=== PATIENT | male | born 1955 | race Caucasian/White ===

== ENCOUNTER 2017-11-19 23:13 | Emergency (ER) | payer BC ==
[2017-11-19] MEDS ORDERED: Ondansetron HCl/PF 4 MG/2 ML Vial ONE (23:24)
[2017-11-20 00:02] LABS: Band 2 % (5-11); Eosinophils 3 % (0-10); Hemoglobin 15.8 g/dL (14.0-18.0); Lymphocytes 2 % (21-51); MDiff Complete? YES; Mean Corpuscular HGB CONC 33.9 g/dL (32.0-36.0); Mean Corpuscular Hemoglobin 29.5 pg (27.0-31.0); Mean Corpuscular Volume 86.9 fL (78.0-98.0); Mean Platelet Volume 7.2 fL (7.4-10.4); Monocytes 6 % (0-10); Neutrophil 87 % (42-75); Platelet Count 233 thou/uL (130-400); RBC Distribution Width 11.7 % (11.5-14.5); Red Blood Cell (RBC) Count 5.37 mill/uL (4.70-6.10); White Blood Cell (WBC) Count 17.6 thou/uL (4.8-10.8)
[2017-11-20 00:33] LABS: Bilirubin Negative (Negative); Blood, Urine Moderate (Negative); Clarity Clear (Clear); Glucose, Urine (Dipstick) Negative (Negative); Leukocyte Negative (Negative); Nitrite Negative (Negative); Protein, Urine (Dipstick) Negative (Neg-Trace); Urobilinogen 0.2 mg/dL (0.2-1.0); pH, Urine 5.5 (5.0-9.0)
[2017-11-20 00:40] LABS: Bacteria/HPF Rare-Few HPF (None Seen); Hyaline Casts/LPF 0-3 HYALINE CAST LPF (0-3 Hyaline); RBC/HPF 0-3 HPF (0-3); Squamous Epithelial 0-3 HPF (0-3); WBC/HPF 0-3 HPF (0-3)
[2017-11-20 00:58] LABS: ALT (SGPT) 28 U/L (8-55); AST (SGOT) 31 U/L (5-34); Albumin 4.3 g/dL (3.4-4.8); Alkaline Phosphatase 75 U/L (40-150); Anion Gap 19 mmol/L (10-20); BUN (Urea Nitrogen) 25 mg/dL (8.4-25.7); Bilirubin, Total 0.8 mg/dL (0.2-1.2); Calc. Creatinine Clearance 0 mL/min (70-130); Calcium 9.2 mg/dL (7.8-10.44); Carbon Dioxide 18 mmol/L (23-31); Chloride 107 mmol/L (98-107); Estimated GFR-MDRD 79; Globulin 2.9 g/dL (2.4-3.5); Glucose 123 mg/dL (80-115); Lipase 10 U/L (8-78); Potassium 4.6 mmol/L (3.5-5.1); Protein, Total 7.2 g/dL (5.8-8.1); Sodium 139 mmol/L (136-145)
[2017-11-20 01:00] LABS: Troponin I Less than 0.010 ng/mL (< 0.028)
--- NOTE | 2017-11-20 09:41 | CT ---
PRELIMINARY REPORT/[facility]/EMERGENTY AFTER-HOURS PROCEDURE CT Abdomen and Pelvis With Intravenous Contrast CLINICAL HISTORY: 62 years old, male; Pain; Abdominal pain; Patient HX: [id number] presents to ed C/O vomiting onset 12: 43, diarrhea shortly after. Pt reports he has vomited x7 times since then. Pt reports he ate breakfas t at 06: 40. Pt denies abd pain, just reports "tightness. " pt took imodium for diarrhea and has been trying to drink gatorade and water. Pt reports pmhx of acid reflux and prostate issues pending result s. TECHNIQUE: Axial computed tomography images of the abdomen and pelvis with intravenous contrast. Coronal reformatted images were created and reviewed. CONTRAST: 85 mL of [id number] administered intravenously. COMPARISON: No relevant prior studies available. FINDINGS: Limitations: Somewhat limited study due to motion artifacts. Lung bases: No acute findings. No mass. No consolidation. ABDOMEN: Liver: No acute findings. No mass. Mildly fatty liver. Gallbladder and bile ducts: No calcified stones. No ductal dilation. Pancreas: No ductal dilation. No mass. Spleen: No acute findings. No mass. Adrenals: No mass. Kidneys and ureters: Right ureterovesical junction 5 mm calculus. No hydroureteronephrosis. Unremarka ble kidneys. Stomach and bowel: Fluid-filled mildly distended small bowel loops, nonspecific and can be seen with enteritis. No evidence of bowel obstruction. Diverticulosis. Fluid distended stomach. PELVIS: Appendix: No findings to suggest acute appendicitis. Bladder: No mass. Reproductive: No acute findings. ABDOMEN and PELVIS: Intraperitoneal space: No acute findings. No free air. No significant fluid collection. Bones/joints: No acute fracture. Bilateral L5 pars defects. Soft tissues: No acute findings. Vasculature: No acute findings. No abdominal aortic aneurysm. Lymph nodes: No lymphadenopathy. IMPRESSION: Possible enteritis. Right UVJ calculus without hydroureteronephrosis. Thank you for allowing us to participate in the care of your patient. Dictated and Authenticated by: Tavo Lerma MD 11/20/2017 1:06 AM Central Time ([place] & [place]) FINAL REPORT CT ABDOMEN AND PELVIS WITH IV CONTRAST: DATE: 11/20/2017. TIME: Performed on an emergency basis at 0005 hours. HISTORY: Abdominal pain. Vomiting. FINDINGS: Agree with the preliminary report by Dr. Lerma from [facility]. Nonobstructing 5 mm distal ri ght ureteral calculus. Mild wall thickening of scattered loops of small bowel may represent enteriti s. POS: FRANCISCO JAVIER
== END 2017-11-20 01:29 | disposition home or self-care (01) ==
LOC: SCSER 23:13
DX: R11.2 Nausea with vomiting, unspecified (principal); R19.7 Diarrhea, unspecified; K21.9 Gastro-esophageal reflux disease without esophagitis; Z79.899 Other long term (current) drug therapy
CPT/HCPCS: 74177; 80053; 81003; 81015; 83690; 84484; 85025; 93005; 96361; 96374; J2405

== ENCOUNTER 2017-11-29 14:01 | Outpatient (CLI) | payer BC ==
[2017-11-29 14:57] LABS: Hemoglobin 15.7 g/dL (14.0-18.0); Mean Corpuscular HGB CONC 33.4 g/dL (32.0-36.0); Mean Corpuscular Hemoglobin 30.3 pg (27.0-31.0); Mean Corpuscular Volume 90.7 fL (78.0-98.0); Mean Platelet Volume 6.6 fL (7.4-10.4); Platelet Count 338 thou/uL (130-400); RBC Distribution Width 11.8 % (11.5-14.5); White Blood Cell (WBC) Count 8.1 thou/uL (4.8-10.8)
[2017-11-29 15:19] LABS: Anion Gap 14 mmol/L (10-20); BUN (Urea Nitrogen) 18 mg/dL (8.4-25.7); Calc. Creatinine Clearance 0 mL/min (70-130); Calcium 9.4 mg/dL (7.8-10.44); Carbon Dioxide 23 mmol/L (23-31); Chloride 107 mmol/L (98-107); Estimated GFR-MDRD Greater than 90; Glucose 96 mg/dL (80-115); Potassium 4.3 mmol/L (3.5-5.1); Sodium 140 mmol/L (136-145)
--- NOTE | 2017-11-30 07:55 | EKG ---
Test Reason : Blood Pressure : / mmHG Vent. Rate : 069 BPM Atrial Rate : 069 BPM P-R Int : 146 ms QRS Dur : 082 ms QT Int : 374 ms P-R-T Axes : 037 047 059 degrees QTc Int : 400 ms Normal sinus rhythm Normal ECG When compared with ECG of 19-NOV-2017 23:50, (Unconfirmed) No significant change was found Confirmed by JENNIFER KAPLAN ([id number]) on 11/30/2017 7:54:44 AM Referred By: ZOE Confirmed By:JENNIFER KAPLAN
== END 2017-11-29 14:02 | disposition home or self-care (01) ==
LOC: LABBT 14:01
PROVIDERS: ATTEND Orthopaedic Surgery
DX: Z01.818 Encounter for other preprocedural examination (principal); N40.0 Benign prostatic hyperplasia without lower urinary tract symptoms
CPT/HCPCS: 80048; 85027; 93005; 93010

== ENCOUNTER 2017-12-06 09:04 | Day surgery (SDC) | payer BC ==
[2017-11-29 14:12] VITALS: BMI 30.4
[2017-12-06] MEDS ORDERED: Iothalamate Meglumine 60% 50 ML VIAL FS ONE (10:50)
[2017-12-06] MEDS ORDERED: Levofloxacin 500 mg/D5W 100 ml Premix Bag ONE (10:53)
[2017-12-06] MEDS ORDERED: Fentanyl 100 MCG/2 ML VIAL ONE (11:02)
[2017-12-06] MEDS ORDERED: Midazolam HCl 2 mg/2 ml Vial ONE (11:02)
[2017-12-06] MEDS ORDERED: PROPOFOL 200 MG/20 ML VIAL ONE (13:05)
[2017-12-06] MEDS ORDERED: ePHEDrine/0.9% NaCl/PF SYRINGE 50 mg/10 ml ONE (13:05)
[2017-12-06] MEDS ORDERED: Ondansetron HCl/PF 4 MG/2 ML Vial ONE (13:05)
[2017-12-06] MEDS ORDERED: Dexamethasone 20 MG/5 ML VIAL ONE (13:05)
[2017-12-06] MEDS ORDERED: Lidocaine 1% PF 5 ML VIAL ONE (13:05)
--- NOTE | 2017-12-06 15:29 | OP ---
DATE OF SERVICE: 12/06/2017 PREOPERATIVE DIAGNOSIS: Right ureteropelvic junction stone. POSTOPERATIVE DIAGNOSIS: Right ureteropelvic junction stone. PROCEDURES PERFORMED: Cystoscopy, right ureteroscopy, holmium laser lithotripsy , stone basketing, stent placement, 6 x 26 double-J with a string. SPECIMEN: Stone. No complications. Minimal blood loss. Drain remaining was a double-J with string. INDICATIONS: The patient is a 62-year-old male who was followed in the office and noted to have microhematuria and before the workup could be completed, he actually presented to the ER with renal colic. CT showed a large 1 cm stone at the UVJ on the right. He was able to be discharged home without definitive intervention and saw me in followup. We planned for definitive therapy and he was presents for this. The patient was brought into the room by Anesthesia, laid on the table in supine position. After receiving general anesthetic, we placed the patient in lithotomy position with left leg elevated and then prepped and draped in sterile fashion. Using the 21-Azeri cystoscope and 30-degree lens, urethra was traversed. Prostate was somewhat high riding but able to be entered easily into the bladder and the bladder was inspected and found to be without lesions. The right ureteral orifice was identified and intubated with a wire first which advanced all the way up to the renal pelvis. Pollack catheter was advanced over this and then the wire removed. No hydronephrotic drip was noted. No urine was able to be retrieved. At this point, a retrograde pyelogram was performed and measurements for a 6 x 26 double-J at the end of the case was performed leaving the wire in place. The Pollack was removed and the dilating sheath was blown up to a maximum pressure of 12 mmHg, a 15 Azeri and 6 cm. This was taken down and then the scope was broken apart, drained the bladder, removed carefully leaving the wire in place and the rigid ureteroscope was taken up to the level of the stone with fragmentation with holmium laser lithotripsy occurred. Multiple fragments were then removed, most dropped into the bladder, one extracted all the way out and sent for stone analysis. Holmium laser was used again to further fragment the rest of the stone and all the fragments were removed in its entirety and dropped into the bladder except for the one that was already extracted out through the urethral meatus and a final pass of the ureter revealed no further significant stones and so the ureteroscope was removed and the cystoscope put back in order to empty out all the stones from the bladder which were all sent together and then the cystoscope was removed and back fed again over the wire and a 6 x 26 double-J was placed over the wire with a coil visualized with the top portion slightly over the upper pole extended, but otherwise in good position and lower coil visualized in good position in the bladder. The scope was broken apart carefully and removed, keeping the string intact, which was then secured to the patient's penis. The patient was then fully awakened and transferred to the PACU in stable condition. HARRY
[2017-12-06] MEDS ORDERED: B & O 30 MG SUPP ONE (15:36)
== END 2017-12-07 16:14 | disposition home or self-care (01) ==
LOC: SDC 09:04
PROVIDERS: ATTEND Urology
PROC: 0T768DZ Dilation of Right Ureter with Intraluminal Device, Via Natural or Artificial Opening Endoscopic (ICD-10-PCS; principal; 2017-12-06)
PROC: 0TF68ZZ Fragmentation in Right Ureter, Via Natural or Artificial Opening Endoscopic (ICD-10-PCS; principal; 2017-12-06)
DX: N20.2 Calculus of kidney with calculus of ureter (principal); N40.1 Benign prostatic hyperplasia with lower urinary tract symptoms; R35.1 Nocturia; N52.9 Male erectile dysfunction, unspecified; Z79.899 Other long term (current) drug therapy
CPT/HCPCS: 76000; 82365; 88300; C1758; J1100; J1956; J2001; J2250; J2405; J2704; J3010; Q9961

== ENCOUNTER 2019-03-10 19:30 | Outpatient (CLI) | payer BC | END 2019-03-10 19:31 | disposition home or self-care (01) | LOC: SLEEPLAB 19:30 | PROVIDERS: ATTEND Family Medicine | DX: G47.33 Obstructive sleep apnea (adult) (pediatric) (principal); F41.9 Anxiety disorder, unspecified; E66.9 Obesity, unspecified | CPT/HCPCS: 95810 ==

== ENCOUNTER 2020-04-29 07:28 | Day surgery (SDC) | payer BC ==
[2020-04-28 11:23] VITALS: BMI 30.9
[2020-04-29] MEDS ORDERED: Levofloxacin 500 mg/D5W 100 ml Premix Bag ONE (07:54)
[2020-04-29] MEDS ORDERED: Fentanyl 100 MCG/2 ML VIAL ONE ×2 (08:27→09:08)
[2020-04-29] MEDS ORDERED: Midazolam HCl 2 mg/2 ml Vial ONE ×2 (08:27→09:08)
[2020-04-29] MEDS ORDERED: hydrALAZINE 20 MG/ML VIAL ONE (09:07)
[2020-04-29] MEDS ORDERED: PROPOFOL 200 MG/20 ML VIAL ONE (09:12)
[2020-04-29] MEDS ORDERED: Ketorolac Tromethamine 30 MG/ML VIAL ONE (10:17)
[2020-04-29] MEDS ORDERED: Oxybutynin 5 MG TAB ONE (10:17)
[2020-04-29] MEDS ORDERED: Phenazopyridine HCl 100 MG TAB ONE (10:18)
== END 2020-04-29 11:45 | disposition home or self-care (01) ==
LOC: SDC 07:28
PROVIDERS: ATTEND Urology
PROC: 0T7D8DZ Dilation of Urethra with Intraluminal Device, Via Natural or Artificial Opening Endoscopic (ICD-10-PCS; principal; 2020-04-29)
DX: N40.1 Benign prostatic hyperplasia with lower urinary tract symptoms (principal); R39.12 Poor urinary stream; R39.15 Urgency of urination; R35.0 Frequency of micturition; N52.9 Male erectile dysfunction, unspecified; K21.9 Gastro-esophageal reflux disease without esophagitis; Z79.51 Long term (current) use of inhaled steroids; Z79.899 Other long term (current) drug therapy
CPT/HCPCS: J0360; J1885; J1956; J2250; J2704; J3010; L8699